=== PATIENT | female | born 1955 | race Caucasian/White ===

== ENCOUNTER 2021-08-27 10:41 | Emergency (ER) | payer MEDICARE, OTHER ==
[~2021-08-27] VITALS: Ht 160 cm; Wt 72.0 kg
[~2021-08-27 10:41] MED LIST: ADLT ASA LOW81 MG PO; ALPRAZOLAM0.25 MG PO; B-COMPLE7 PO; BUSPIRONE10 MG PO; CETIRIZ/PSE1 TAB PO; CLIMARA PRO TD; CLONAZEPAM0.5 MG PO; D3400 UNIT PO; DENAVIR1 % EX; FLONASE NASAL50 MCG; FLUVOXAMINE PO; IBUPROFEN600 MG PO; NITROSTAT0.4 MG SL; NYSTAT/TRIA1 EX; PRILOSEC20 MG/CAP PO; PROBIOTI3 PO; VALACYCLOVIR1 GM PO; WELLBUTRIN SR150 MG PO; WELLBUTRIN150 M1 PO; ZPAK PO
[2021-08-27] MEDS ORDERED: PREDNISONE10 MG PO ×2 (11:11→13:06)
[2021-08-27] MEDS ORDERED: PROTONIX20 M1 PO (11:11)
[2021-08-27 11:17] LABS: GFR > 60 ML/MIN (>=60 (CALC)); GFR FOR AFR.AMER. > 60 ML/MIN (>=60 (CALC))
[2021-08-27 11:19] LABS: HEMATOCRIT 46.1 % (37.0-47.0); HEMOGLOBIN 14.5 g/dl (12.0-16.0); IMMATURE GRANULOCYTES 0.1 % (0.0-5.0); MEAN CELL VOLUME 98.3 fL CALC (80.0-100.0); MEAN CORPUSCULAR HGB 30.9 pG CALC (26.0-32.0); MEAN CORPUSCULAR HGB CONC 31.5 g/dL CAL (32.0-36.0); NEUT# 7.39 thou/uL (2.00-7.15); RED BLOOD COUNT 4.69 mill/uL (4.20-5.60); RED CELL DISTRI WIDTH 13.8 % (11.5-15.5)
[2021-08-27 11:38] LABS: ALBUMIN 4.2 g/dL (3.2-5.0); ALKALINE PHOSPHATASE 80 u/l (38-126); ANION GAP 13 (6-22 (CALC)); BILIRUBIN, TOTAL 0.4 mg/dL (0.0-1.4); BUN 11 mg/dL (8-23); BUN/CREATININE RATIO 16 (12-20 (CALC)); CARBON DIOXIDE 28 mmol/l (22-30); CHLORIDE 101 mmol/l (95-108); CREATININE 0.7 mg/dL (0.5-1.0); GFR > 60 ML/MIN (>=60 (CALC)); GFR FOR AFR.AMER. > 60 ML/MIN (>=60 (CALC)); LIPASE 54 u/l (23-300); POTASSIUM 3.5 mmol/l (3.5-5.1); SGOT/AST 25 u/l (9-36); SODIUM 138 mmol/l (137-146); TOTAL PROTEIN 7.7 g/dL (6.3-8.2)
[2021-08-27 11:50] LABS: URINE BILIRUBIN - DIPSTICK NEGATIVE (NEGATIVE); URINE BLOOD DIPSTICK MODERATE (NEGATIVE); URINE COLOR YELLOW; URINE GLUCOSE - DIPSTICK NEGATIVE (NEGATIVE); URINE KETONE NEGATIVE (NEGATIVE); URINE LEUK ESTERASE NEGATIVE (NEGATIVE); URINE PH 5.5 (4.5-8.0); URINE PROTEIN - DIPSTICK NEGATIVE (NEG-TRACE); URINE SPECIFIC GRAVITY >=1.030; URINE UROBILINOGEN - DIPSTICK 0.2 E.U./dL (0.2)
[2021-08-27 11:55] LABS: URINE NITRITE - DIPSTICK NEGATIVE (Negative)
[2021-08-27 12:01] LABS: URINE SQUAMOUS EPITHELIAL CELL FEW EPI/hpf (0-FEW); URINE WBC 0-2 WBC/hpf (0-5)
[2021-08-27] MEDS ORDERED: CIPROFLOXACN500 MG PO (13:06)
[2021-08-27] MEDS ORDERED: ZOFRAN4 MG/TAB PO (13:06)
[2021-08-27] MEDS ORDERED: METRONIDAZOLE500 MG PO (13:06)
[2021-08-27 13:13] VITALS: BP 113/56
[2021-08-28] MEDS ORDERED: HYDROCO/APAP1 TA9 PO (08:36)
== END 2021-08-27 13:13 | disposition home or self-care (01) ==
LOC: ED 10:41
PROVIDERS: Family Medicine
DX: K57.32 Diverticulitis of large intestine without perforation or abscess without bleeding (principal); F41.9 Anxiety disorder, unspecified; H91.91 Unspecified hearing loss, right ear; Z96.29 Presence of other otological and audiological implants
CPT/HCPCS: Q9967

== ENCOUNTER 2021-08-29 10:27 | Emergency (ER) | payer MEDICARE, OTHER ==
[~2021-08-29] VITALS: Ht 152.4 cm; Wt 85.0 kg
[~2021-08-29 10:27] MED LIST changes: +CIPROFLOXACN500 MG PO; +HYDROCO/APAP1 TA9 PO; +METRONIDAZOLE500 MG PO; +PREDNISONE10 MG PO; +PROTONIX20 M1 PO; +ZOFRAN4 MG/TAB PO
[2021-08-29 12:05] LABS: HEMATOCRIT 43.5 % (37.0-47.0); HEMOGLOBIN 13.8 g/dl (12.0-16.0); IMMATURE GRANULOCYTES 0.1 % (0.0-5.0); MEAN CELL VOLUME 97.8 fL CALC (80.0-100.0); MEAN CORPUSCULAR HGB CONC 31.7 g/dL CAL (32.0-36.0); NEUT# 5.72 thou/uL (2.00-7.15); RED BLOOD COUNT 4.45 mill/uL (4.20-5.60); RED CELL DISTRI WIDTH 13.3 % (11.5-15.5)
[2021-08-29 12:33] LABS: ALBUMIN 3.8 g/dL (3.2-5.0); ALKALINE PHOSPHATASE 64 u/l (38-126); AMYLASE 47 u/l (30-110); ANION GAP 14 (6-22 (CALC)); BUN 8 mg/dL (8-23); BUN/CREATININE RATIO 12 (12-20 (CALC)); CARBON DIOXIDE 27 mmol/l (22-30); CHLORIDE 99 mmol/l (95-108); CREATININE 0.6 mg/dL (0.5-1.0); GFR > 60 ML/MIN (>=60 (CALC)); GFR FOR AFR.AMER. > 60 ML/MIN (>=60 (CALC)); LIPASE 39 u/l (23-300); POTASSIUM 4.1 mmol/l (3.5-5.1); SGOT/AST 25 u/l (9-36); SODIUM 136 mmol/l (137-146); TOTAL PROTEIN 6.8 g/dL (6.3-8.2)
[2021-08-29 12:34] LABS: BILIRUBIN, TOTAL 0.7 mg/dL (0.0-1.4)
[2021-08-29 12:51] LABS: URINE BLOOD DIPSTICK MODERATE (NEGATIVE); URINE COLOR YELLOW; URINE GLUCOSE - DIPSTICK NEGATIVE (NEGATIVE); URINE KETONE >=80 mg/dL (NEGATIVE); URINE LEUK ESTERASE NEGATIVE (NEGATIVE); URINE PH 5.5 (4.5-8.0); URINE PROTEIN - DIPSTICK NEGATIVE (NEG-TRACE); URINE UROBILINOGEN - DIPSTICK 0.2 E.U./dL (0.2)
[2021-08-29 12:54] LABS: URINE BILIRUBIN - DIPSTICK NEGATIVE (NEGATIVE); URINE NITRITE - DIPSTICK NEGATIVE (Negative)
[2021-08-29 12:59] LABS: URINE RBC 0-2 RBC/hpf (0-5); URINE SQUAMOUS EPITHELIAL CELL FEW EPI/hpf (0-FEW)
[2021-08-29] MEDS ORDERED: PERCOCET 10/31 COMBO PO (14:00)
[2021-08-29 14:35] VITALS: BP 110/62
== END 2021-08-29 14:35 | disposition home or self-care (01) ==
LOC: ED 10:27
PROVIDERS: Emergency Medicine
DX: K57.32 Diverticulitis of large intestine without perforation or abscess without bleeding (principal); F41.9 Anxiety disorder, unspecified; H91.91 Unspecified hearing loss, right ear

== ENCOUNTER 2021-12-15 18:31 | Emergency (ER) | payer MEDICARE, OTHER ==
[~2021-12-15] VITALS: Ht 160 cm; Wt 76.0 kg
[2021-12-15] VITALS (8 sets, daily range): BP systolic 125–141; BP diastolic 71–80
[~2021-12-15 18:31] MED LIST changes: +PERCOCET 10/31 COMBO PO
[2021-12-15] MEDS ORDERED: ALPRAZOLAM0.25 M1 PO (19:15)
[2021-12-15] MEDS ORDERED: COLACE100 MG PO (19:16)
[2021-12-15] MEDS ORDERED: MIRALAX17 GM (19:17)
[2021-12-15] MEDS ORDERED: DICYCLOMINE10 MG PO (19:18)
[2021-12-15 20:01] LABS: URINE BILIRUBIN - DIPSTICK NEGATIVE (NEGATIVE); URINE BLOOD DIPSTICK TRACE-INTACT (NEGATIVE); URINE COLOR YELLOW; URINE GLUCOSE - DIPSTICK NEGATIVE (NEGATIVE); URINE KETONE TRACE mg/dL (NEGATIVE); URINE LEUK ESTERASE TRACE (NEGATIVE); URINE PROTEIN - DIPSTICK NEGATIVE (NEG-TRACE); URINE SPECIFIC GRAVITY <=1.005; URINE UROBILINOGEN - DIPSTICK 0.2 E.U./dL (0.2)
[2021-12-15 20:01] LABS: HEMATOCRIT 44.9 % (37.0-47.0); HEMOGLOBIN 14.3 g/dl (12.0-16.0); IMMATURE GRANULOCYTES 0.1 % (0.0-5.0); MEAN CELL VOLUME 97.2 fL CALC (80.0-100.0); MEAN CORPUSCULAR HGB CONC 31.8 g/dL CAL (32.0-36.0); NEUT# 4.61 thou/uL (2.00-7.15); RED BLOOD COUNT 4.62 mill/uL (4.20-5.60); RED CELL DISTRI WIDTH 14.3 % (11.5-15.5)
[2021-12-15 20:03] LABS: URINE NITRITE - DIPSTICK NEGATIVE (Negative)
[2021-12-15 20:18] LABS: ALBUMIN 4.4 g/dL (3.2-5.0); ALKALINE PHOSPHATASE 72 u/l (38-126); AMYLASE 60 u/l (30-110); ANION GAP 15 (6-22 (CALC)); BUN 11 mg/dL (8-23); BUN/CREATININE RATIO 18 (12-20 (CALC)); CARBON DIOXIDE 25 mmol/l (22-30); CHLORIDE 106 mmol/l (95-108); CREATININE 0.6 mg/dL (0.5-1.0); GFR > 60 ML/MIN (>=60 (CALC)); GFR FOR AFR.AMER. > 60 ML/MIN (>=60 (CALC)); LIPASE 68 u/l (23-300); POTASSIUM 4.1 mmol/l (3.5-5.1); SODIUM 142 mmol/l (137-146)
[2021-12-15 20:22] LABS: BILIRUBIN, TOTAL 0.3 mg/dL (0.0-1.4); SGOT/AST 71 u/l (9-36)
[2021-12-15] MEDS ORDERED: TRAMADOL HCL50 MG PO (21:29)
== END 2021-12-15 22:39 | disposition home or self-care (01) ==
LOC: ED 18:31
PROVIDERS: Family Medicine
DX: K57.30 Diverticulosis of large intestine without perforation or abscess without bleeding (principal); R10.32 Left lower quadrant pain

== ENCOUNTER 2022-05-31 08:01 | Emergency (ER) | payer MEDICARE, OTHER ==
[~2022-05-31] VITALS: Ht 160 cm; Wt 67.0 kg
[2022-05-31] VITALS (14 sets, daily range): BP systolic 98–132; BP diastolic 52–85
[~2022-05-31 08:01] MED LIST changes: +ALPRAZOLAM0.25 M1 PO; +CALCIUM600 M1 PO; +COLACE100 MG PO; +D-MANNOSE500 MG; +DICYCLOMINE10 MG PO; +MIRALAX17 GM; +RED YEAST RICE600 M1; +TRAMADOL HCL50 MG PO; +VITAMIN D31000 UNI1 PO
[2022-05-31] MEDS ORDERED: LIBRAX1 CAP PO (08:59)
[2022-05-31 09:26] LABS: HEMATOCRIT 43.2 % (37.0-47.0); HEMOGLOBIN 14.2 g/dl (12.0-16.0); IMMATURE GRANULOCYTES 0.1 % (0.0-5.0); MEAN CELL VOLUME 95.2 fL CALC (80.0-100.0); MEAN CORPUSCULAR HGB 31.3 pG CALC (26.0-32.0); MEAN CORPUSCULAR HGB CONC 32.9 g/dL CAL (32.0-36.0); NEUT# 7.32 thou/uL (2.00-7.15); RED BLOOD COUNT 4.54 mill/uL (4.20-5.60); RED CELL DISTRI WIDTH 13.5 % (11.5-15.5)
[2022-05-31 09:30] LABS: ALBUMIN 4.5 g/dL (3.2-5.0); ALKALINE PHOSPHATASE 72 u/l (38-126); ANION GAP 12 (6-22 (CALC)); BUN 6 mg/dL (8-23); BUN/CREATININE RATIO 10 (12-20 (CALC)); CARBON DIOXIDE 26 mmol/l (22-30); CHLORIDE 103 mmol/l (95-108); CREATININE 0.7 mg/dL (0.5-1.0); GFR FOR AFR.AMER. > 60 ML/MIN (>=60 (CALC)); GFR OTHER RACES > 60 ML/MIN (>=60 (CALC)); LIPASE 47 u/l (23-300); POTASSIUM 4.1 mmol/l (3.5-5.1); SODIUM 138 mmol/l (137-146); TOTAL PROTEIN 7.7 g/dL (6.3-8.2)
[2022-05-31 09:31] LABS: BILIRUBIN, TOTAL 0.9 mg/dL (0.0-1.4); SGOT/AST 43 u/l (9-36)
[2022-05-31 10:06] LABS: URINE BILIRUBIN - DIPSTICK NEGATIVE (NEGATIVE); URINE BLOOD DIPSTICK MODERATE (NEGATIVE); URINE COLOR YELLOW; URINE GLUCOSE - DIPSTICK NEGATIVE (NEGATIVE); URINE KETONE 15 mg/dL (NEGATIVE); URINE LEUK ESTERASE NEGATIVE (NEGATIVE); URINE PROTEIN - DIPSTICK NEGATIVE (NEG-TRACE); URINE SPECIFIC GRAVITY <=1.005; URINE UROBILINOGEN - DIPSTICK 0.2 E.U./dL (0.2)
[2022-05-31 10:18] LABS: URINE NITRITE - DIPSTICK NEGATIVE (Negative)
[2022-05-31 10:22] LABS: URINE EPITHELIAL CELLS FEW EPI/hpf (0-FEW); URINE RBC 0-2 RBC/hpf (0-5)
[2022-05-31] MEDS ORDERED: OMNI-PAC300 MG PO ×2 (12:06→12:47)
[2022-05-31] MEDS ORDERED: METRONIDAZOLE500 MG PO ×2 (12:06→12:47)
[2022-05-31] MEDS ORDERED: HYDROCO/APAP1 TA9 PO (12:06)
[2022-05-31] MEDS ORDERED: DICYCLOMINE HCL20 MG PO ×2 (12:06→12:47)
[2022-05-31] MEDS ORDERED: LORTAB 5/3255 MG PO (12:47)
== END 2022-05-31 12:20 | disposition home or self-care (01) ==
LOC: ED 08:01
PROVIDERS: Internal Medicine
DX: K57.32 Diverticulitis of large intestine without perforation or abscess without bleeding (principal); F41.9 Anxiety disorder, unspecified; H91.91 Unspecified hearing loss, right ear